=== PATIENT | male | born 1980 | race Caucasian/White ===

== ENCOUNTER 2017-01-15 09:45 | Emergency (ER) | payer OTHER | END 2017-01-15 11:53 | disposition left against medical advice (07) | LOC: UCEAST 09:45 | DX: S99.929A Unspecified injury of unspecified foot, initial encounter (principal); X58.XXXA Exposure to other specified factors, initial encounter; Y93.9 Activity, unspecified; Y92.9 Unspecified place or not applicable; Z53.21 Procedure and treatment not carried out due to patient leaving prior to being seen by health care provider ==

== ENCOUNTER 2017-06-12 16:35 | Emergency (ER) | payer OTHER ==
[2017-06-12 18:07] LABS: Hematocrit 41 % (42-52); Hemoglobin 13.6 g/dl (14.0-18.0); Mean Corpuscular HGB Conc 33 g/dl (31-36); Mean Corpuscular Hemoglobin 27 pg (27-31); Mean Corpuscular Volume 83 fL (80-94); Mean Platelet Volume 8 um3 (7.4-10.4); Red Blood Count 4.98 10^6/ul (4.0-5.4); Red Cell Distribution Width 14 % (10.5-15); White Blood Count 13.9 10^3/ul (3.5-10.8)
[2017-06-12] MEDS ORDERED: Meclizine TAB* 12.5 MG PO ONE (18:21)
[2017-06-12 18:24] LABS: Albumin 3.6 g/dL (3.2-5.2); BUN/Creatinine Ratio 10.6 (8-20); Calcium 8.8 mg/dL (8.6-10.3); EGFR African American 95.5 (>60); EGFR Non-African American 74.3 (>60); Globulin 3.1 g/dL (2-4); Magnesium 1.9 mg/dL (1.9-2.7); Potassium 3.5 mmol/L (3.5-5.0); Total Bilirubin 0.4 mg/dL (0.2-1.0); Total Protein 6.7 g/dL (6.4-8.9)
[2017-06-12] MEDS ORDERED: Iohexol 350* (CONTRAST) 500 ML MDV IV ONE ×2 (18:29→20:04)
[2017-06-12 18:40] LABS: Urine Bilirubin Negative (Negative); Urine Glucose Negative (Negative); Urine Nitrite Negative (Negative)
[2017-06-12 19:05] LABS: TSH (Thyroid Stimulating Horm) 2.08 mcIU/mL (0.34-5.60)
--- NOTE | 2017-06-12 20:52 | RAD ---
Indication: Vertigo, neck pain. CT of the brain was performed without IV contrast. Ventricular structures are midline. No midline shift is noted. The extra-axial spaces are unremarkable. There is no evidence of intracranial mass or hemorrhage. No other high or low density lesions are identified. Mastoid air cells and paranasal sinuses are otherwise unremarkable. IMPRESSION: No intracranial mass or hemorrhage is noted.
--- NOTE | 2017-06-12 21:03 | RAD ---
Indication: Neck pain, vertigo. Contrast: Administered 199.4 ml of OMNIPAQUE 350 mg/ml CTA of the neck was performed after IV contrast administration. Coronal and sagittal reconstructed images were obtained. Initial injection was limited due to body habitus. Reinjection was performed. The aortic arch and great vessels are unremarkable. The common carotid arteries are grossly unremarkable. No plaque is noted in the internal carotid artery bulb. The cervical internal carotid arteries are grossly unremarkable. The vertebral arteries are patent bilaterally. No evidence of stenosis is noted. No vertebral artery dissection is noted. The intracranial carotid arteries are grossly unremarkable. No branch occlusion is identified. The vertebral arteries, basilar arteries and posterior cerebral arteries are unremarkable. No aneurysmal dilatation is identified. No evidence of abnormal adenopathy is noted in the neck. Parotid glands are prominent bilaterally. Scattered carotid chain lymph nodes are noted which do not appear to BE abnormally enlarged. No prevertebral soft tissue masses are noted. IMPRESSION: No evidence of carotid artery dissection or vertebral artery dissection is noted. No branch occlusion or aneurysmal dilatation is noted. This is a somewhat suboptimal study due to body habitus.
--- NOTE | 2017-06-12 21:14 | ED ---
Jamey Griffiths Nilda, scribed for Christy Isabel MD on 06/12/17 at 1706 . Dizziness - HPI Summary HPI Summary: This patient is a 36 year old M BIBA presenting to [facility] accompanied by with a chief complaint of dizziness earlier today while at a meeting. Last night patient woke up and felt foggy and as if the room was spinning. Today, patient reports nausea, diaphoresis, feeling feverish, left neck pain, left shoulder pain, and slurred speech, all of which have resolved. He currently still feels as if his mind is "foggy." Patient denies hearing loss, recent respiratory issues, diplopia, difficulty swallowing, and word finding. Symptoms aggravated by nothing and alleviated by spontaneous resolution. - History Of Current Complaint Chief Complaint: EDDizziness Stated Complaint: DIZZINESS Time Seen by Provider: 06/12/17 16:50 Hx Obtained From: Patient Onset/Duration: Resolved Timing: Minutes Severity Initially: Moderate Severity Currently: None Character: Head Spinning, Dizzy Aggravating Factor(s): Nothing Alleviating Factor(s): Other - spontaneous resolution Associated Signs And Symptoms: Positive: Other: - nausea, diaphoresis, feverish , left neck pain, left shoulder pain, slurred speech (resolved). Patient denies hearing loss, recent respiratory, diplopia, difficulty swallowing, and word finding. - Allergies/Home Medications Allergies/Adverse Reactions: Allergies Allergy/AdvReac Type Severity Reaction Status Date / Time No Known Allergies Allergy Verified 10/04/14 10:15 PMH/Surg Hx/FS Hx/Imm Hx Endocrine/Hematology History: Denies: Hx Diabetes, Hx Thyroid Disease Cardiovascular History: Denies: Hx Hypertension, Hx Pacemaker/ICD Respiratory History: Denies: Hx Asthma, Hx Chronic Obstructive Pulmonary Disease (COPD) GI History: Denies: Hx Ulcer Sensory History: Denies: Hx Hearing Aid Psychiatric History: Denies: Hx Panic Disorder - Surgical History Surgery Procedure, Year, and Place: RT KNEE PATELLA SURGERY AGE 12. Infectious Disease History: No Infectious Disease History: Denies: Hx Clostridium Difficile, Hx Hepatitis, Hx Human Immunodeficiency Virus (HIV), Hx of Known/Suspected MRSA, Hx Shingles, Hx Tuberculosis, History Other Infectious Disease, Traveled Outside the [place] in Last 30 Days - Family History Known Family History: Negative: Hypertension, Diabetes - Social History Alcohol Use: Rare Substance Use Type: Reports: None Smoking Status (MU): Never Smoked Tobacco Review of Systems Positive: Fever - (resolved), Skin Diaphoresis - (resolved) Negative: Diplopia Positive: Other - negative difficulty swallowing and hearing loss Positive: Other - negative recent respiratory issues Positive: Nausea - (resolved) Positive: Other - left neck and shoulder pain (resolved) Neurological: Other - slurred speech (resolved), dizziness, room was spinning, mind is "foggy" (still present); negative word finding All Other Systems Reviewed And Are Negative: Yes Physical Exam Triage Information Reviewed: Yes Vital Signs On Initial Exam: Initial Vitals Temp Pulse Resp BP Pulse Ox 97.3 F 101 20 127/79 93 06/12/17 16:48 06/12/17 16:48 06/12/17 16:48 06/12/17 16:48 06/12/17 16:48 Vital Signs Reviewed: Yes Appearance: Positive: Well-Appearing, No Pain Distress, Obese - morbidly obese Skin: Positive: Warm, Skin Color Reflects Adequate Perfusion, Dry Eyes: Positive: EOMI, NIECY ENT: Positive: Pharynx normal, TMs normal Neck: Positive: Supple, Nontender Respiratory/Lung Sounds: Positive: Clear to Auscultation, Breath Sounds Present. Negative: Rales, Rhonchi, Wheezes Cardiovascular: Positive: RRR, Other - no gallop. Negative: Murmur, Rub Abdomen Description: Positive: Nontender, Soft, Other: - no rebound. Negative: Guarding Bowel Sounds: Positive: Present Musculoskeletal: Positive: Strength/ROM Intact. Negative: Edema Left, Edema Right Neurological: Positive: Sensory/Motor Intact, Alert, Oriented to Person Place, Time, CN Intact II-III, Other - NIH is negative Psychiatric: Positive: Affect/Mood Appropriate - Linette Coma Scale Coma Scale Total: 15 Diagnostics - Vital Signs Vital Signs Temp Pulse Resp BP Pulse Ox 06/12/17 16:48 97.3 F 101 20 127/79 93 - Laboratory Lab Results: Lab Results 06/12/17 06/12/17 06/12/17 Range/Units 17:59 17:59 17:59 WBC 13.9 H (3.5-10.8) 10^3/ul RBC 4.98 (4.0-5.4) 10^6/ul Hgb 13.6 L (14.0-18.0) g/dl Hct 41 L (42-52) % MCV 83 (80-94) fL MCH 27 (27-31) pg MCHC 33 (31-36) g/dl RDW 14 (10.5-15) % Plt Count 246 (150-450) 10^3/ul MPV 8 (7.4-10.4) um3 Neut % (Auto) 77.3 (38-83) % Lymph % (Auto) 16.9 L (25-47) % [place] % (Auto) 4.2 (1-9) % Eos % (Auto) 0.8 (0-6) % Baso % (Auto) 0.8 (0-2) % Absolute Neuts (auto) 10.7 H (1.5-7.7) 10^3/ul Absolute Lymphs (auto) 2.3 (1.0-4.8) 10^3/ul Absolute Monos (auto) 0.6 (0-0.8) 10^3/ul Absolute Eos (auto) 0.1 (0-0.6) 10^3/ul Absolute Basos (auto) 0.1 (0-0.2) 10^3/ul Absolute Nucleated RBC 0.01 10^3/ul Nucleated RBC % 0.1 Sodium 134 (133-145) mmol/L Potassium 3.5 (3.5-5.0) mmol/L Chloride 103 (101-111) mmol/L Carbon Dioxide 24 (22-32) mmol/L Anion Gap 7 (2-11) mmol/L BUN 12 (6-24) mg/dL Creatinine 1.13 (0.67-1.17) mg/dL Est GFR ( Amer) 95.5 (>60) Est GFR (Non-Af Amer) 74.3 (>60) BUN/Creatinine Ratio 10.6 (8-20) Glucose 108 H (70-100) mg/dL Lactic Acid 1.3 (0.5-2.0) mmol/L Calcium 8.8 (8.6-10.3) mg/dL Magnesium 1.9 (1.9-2.7) mg/dL Total Bilirubin 0.40 (0.2-1.0) mg/dL AST 22 (13-39) U/L ALT 27 (7-52) U/L Alkaline Phosphatase 42 (34-104) U/L Troponin I 0.00 (<0.04) ng/mL Total Protein 6.7 (6.4-8.9) g/dL Albumin 3.6 (3.2-5.2) g/dL Globulin 3.1 (2-4) g/dL Albumin/Globulin Ratio 1.2 (1-3) TSH 2.08 (0.34-5.60) mcIU/mL Urine Color Urine Appearance Urine pH (5-9) Ur Specific [place] (1.010-1.030) Urine Protein (Negative) Urine Ketones (Negative) Urine Blood (Negative) Urine Nitrate (Negative) Urine Bilirubin (Negative) Urine Urobilinogen (Negative) Ur Leukocyte Esterase (Negative) Urine Glucose (Negative) 06/12/17 Range/Units 18:30 WBC (3.5-10.8) 10^3/ul RBC (4.0-5.4) 10^6/ul Hgb (14.0-18.0) g/dl Hct (42-52) % MCV (80-94) fL MCH (27-31) pg MCHC (31-36) g/dl RDW (10.5-15) % Plt Count (150-450) 10^3/ul MPV (7.4-10.4) um3 Neut % (Auto) (38-83) % Lymph % (Auto) (25-47) % [place] % (Auto) (1-9) % Eos % (Auto) (0-6) % Baso % (Auto) (0-2) % Absolute Neuts (auto) (1.5-7.7) 10^3/ul Absolute Lymphs (auto) (1.0-4.8) 10^3/ul Absolute Monos (auto) (0-0.8) 10^3/ul Absolute Eos (auto) (0-0.6) 10^3/ul Absolute Basos (auto) (0-0.2) 10^3/ul Absolute Nucleated RBC 10^3/ul Nucleated RBC % Sodium (133-145) mmol/L Potassium (3.5-5.0) mmol/L Chloride (101-111) mmol/L Carbon Dioxide (22-32) mmol/L Anion Gap (2-11) mmol/L BUN (6-24) mg/dL Creatinine (0.67-1.17) mg/dL Est GFR ( Amer) (>60) Est GFR (Non-Af Amer) (>60) BUN/Creatinine Ratio (8-20) Glucose (70-100) mg/dL Lactic Acid (0.5-2.0) mmol/L Calcium (8.6-10.3) mg/dL Magnesium (1.9-2.7) mg/dL Total Bilirubin (0.2-1.0) mg/dL AST (13-39) U/L ALT (7-52) U/L Alkaline Phosphatase (34-104) U/L Troponin I (<0.04) ng/mL Total Protein (6.4-8.9) g/dL Albumin (3.2-5.2) g/dL Globulin (2-4) g/dL Albumin/Globulin Ratio (1-3) TSH (0.34-5.60) mcIU/mL Urine Color Yellow Urine Appearance Clear Urine pH 6.0 (5-9) Ur Specific [place] 1.009 L (1.010-1.030) Urine Protein Negative (Negative) Urine Ketones Negative (Negative) Urine Blood Negative (Negative) Urine Nitrate Negative (Negative) Urine Bilirubin Negative (Negative) Urine Urobilinogen Negative (Negative) Ur Leukocyte Esterase Negative (Negative) Urine Glucose Negative (Negative) Result Diagrams: 06/12/17 17:59 06/12/17 17:59 Lab Statement: Any lab studies that have been ordered have been reviewed, and results considered in the medical decision making process. - CT Brain CT Interpretation Completed By: Radiologist - No intracranial mass or hemorrhage is noted. ED physician reviewed this report and agrees. CTA Head/Neck CT Interpretation Completed By: Radiologist - No evidence of caotid artery dissection or vertebral artery dissection is noted. No branch occlusion or aneurysmal dilatation is noted. This is somewhat suboptimal study due to body habitus. ED physician has reviewed this report and agrees. - EKG 1827 Cardiac Rate: NL - 68 bpm EKG Rhythm: Sinus Rhythm ST Segment: Normal Ectopy: None Re-Evaluation - Re-Evaluation First Eval Re-Evaluation Time: 21:08 Comment: Discussed labs with patient and plans to D/C. Patient agreeable with this plan. Dizzy Course/Dx - Course Course Of Treatment: 36 yo male with ear problems since he was a kid (found out later than during hpi- during 2nd evaluation) with tm's with chronic scarring and discharge with vertiginous symptoms pt did describe neck pain with neg ct and cta. - Diagnoses Provider Diagnoses: Vertigo Discharge - Discharge Plan Condition: Stable Disposition: HOME Prescriptions: Meclizine TAB* [Antivert 12.5 TAB*] 25 mg PO TID PRN #20 tab PRN Reason: Vertigo Patient Education Materials: Vertigo (ED) Referrals: Jm Mulligan MD [Primary Care Provider] - 3 Days Additional Instructions: RETURN TO THE EMERGENCY DEPARTMENT FOR CHANGING OR WORSENING SYMPTOMS. The documentation as recorded by the Jamey puga Nilda accurately reflects the service I personally performed and the decisions made by me, Christy Isabel MD.
[2017-06-12 22:35] VITALS: BP 121/83
== END 2017-06-12 22:33 | disposition home or self-care (01) ==
LOC: ED 16:35
DX: R42 Dizziness and giddiness (principal)
CPT/HCPCS: 36415; 70450; 70496; 70498; 80053; 81003; 83605; 83735; 84443; 84484; 85025; 93005; 96374; 96376; 99283; A9270-GY; Q9967

== ENCOUNTER 2018-07-23 13:18 | Emergency (ER) | payer OTHER ==
[2018-07-23 13:40] VITALS: BP 164/95
--- NOTE | 2018-07-23 13:58 | UC ---
Respiratory Complaint HPI - HPI Summary HPI Summary: Pt. is a 37 y.o male who presents to the ER for an intermittent cough x 1 week. Pt. states couhg is worse at night and when lying flat. Pt. notes having small children at home who have been sick. He denies fever, chills, CP, SOB, abd. pain , V/D. Pt. feels throat is sore from coughing. Sxs are mild in severity. Past medical hx of sleep apnea. - History of Current Complaint Chief Complaint: UCRespiratory Stated Complaint: SORE THROAT Time Seen by Provider: 07/23/18 13:44 Hx Obtained From: Patient Pain Intensity: 4 - Allergies/Home Medications Allergies/Adverse Reactions: Allergies Allergy/AdvReac Type Severity Reaction Status Date / Time No Known Allergies Allergy Verified 07/23/18 13:40 PMH/Surg Hx/FS Hx/Imm Hx Previously Healthy: Yes - Surgical History Surgical History: None Surgery Procedure, Year, and Place: RT KNEE PATELLA SURGERY AGE 12. - Family History Known Family History: Negative: Hypertension, Diabetes - Social History Occupation: Employed Full-time Lives: With Family Alcohol Use: Rare Substance Use Type: None Smoking Status (MU): Never Smoked Tobacco Review of Systems All Other Systems Reviewed And Are Negative: Yes Constitutional: Positive: Negative. Negative: Fever, Chills Skin: Positive: Negative Eyes: Positive: Negative ENT: Positive: Sore Throat Respiratory: Positive: Cough. Negative: Shortness Of Breath Cardiovascular: Positive: Negative. Negative: Chest Pain Gastrointestinal: Positive: Negative Musculoskeletal: Positive: Negative Neurological: Positive: Negative Is Patient Immunocompromised?: No Physical Exam Triage Information Reviewed: Yes Appearance: Well-Appearing - Pt. sitting on exam table in NAD. Vital Signs: Initial Vital Signs Temp 98 F 07/23/18 13:38 Pulse 110 07/23/18 13:38 Resp 20 07/23/18 13:38 BP 164/95 07/23/18 13:38 Pulse Ox 99 07/23/18 13:38 Vital Signs Reviewed: Yes Eyes: Positive: Conjunctiva Clear ENT: Positive: Pharyngeal erythema, TMs normal. Negative: Tonsillar swelling, Tonsillar exudate, Uvula midline Neck exam: Normal Neck: Positive: Supple, Nontender, No Lymphadenopathy Respiratory: Positive: Other: - Diminished breath sounds throughout. Cardiovascular: Positive: RRR Psychological Exam: Normal Skin Exam: Normal UC Diagnostic Evaluation - Laboratory O2 Sat by Pulse Oximetry: 99 Respiratory Course/Dx - Course Course Of Treatment: Patient presenting for ongoing intermittent productive cough. He is afebrile stable vital signs. Oxygen saturation is 97% room air which is normal. Chest x-ray is negative for infiltrate or acute findings, reading per radiology. Suspect viral etiology. Will treat conservatively at this time with antibiotics. We'll try Tessalon Perles for cough. Advised patient to schedule a follow-up appointment with his family doctor. Advised patient to a cough from bronchitis can last for weeks. Continue over-the- counter medication as directed. Patient understands and agrees with plan. - Differential Dx/Diagnosis Differential Diagnosis/HQI/PQRI: Asthma, Bronchitis, Influenza, Lower Resp Infection, Sinusitis Provider Diagnosis: Bronchitis Discharge - Sign-Out/Discharge Documenting (check all that apply): Patient Departure All imaging exams completed and their final reports reviewed: Yes - Discharge Plan Condition: Good Disposition: HOME Prescriptions: Benzonatate CAP* [Tessalon 100 MG CAP*] 100 mg PO TID PRN #20 cap PRN Reason: Cough Patient Education Materials: Acute Bronchitis (ED) Referrals: Jm Mulligan MD [Primary Care Provider] - Additional Instructions: Schedule a follow up appointment with your PCP Increase fluids and rest Tessalon pearls as directed to help with cough Can continue over the counter medications as directed Return to or go ER if symptoms change or worsen - Billing Disposition and Condition Condition: GOOD Disposition: Home
== END 2018-07-23 14:49 | disposition home or self-care (01) ==
LOC: UCEAST 13:18
DX: J40 Bronchitis, not specified as acute or chronic (principal)
CPT/HCPCS: 71046; 99212; G0463